=== PATIENT | male | born 1995 | race Caucasian/White ===

== ENCOUNTER 2019-10-16 21:55 | Emergency (ER) | payer SELFPAY ==
[2019-10-17 00:23] VITALS: BP 115/72
--- NOTE | 2019-10-17 01:05 | ER Document Report ---
ED General - General Chief Complaint: Sore Throat Stated Complaint: LOSS TASTE SMELL/CHILLS/HEADACHE Time Seen by Provider: 10/17/19 00:41 Primary Care Provider: HAO DEL VALLE MD [Primary Care Provider] - Follow up as needed Mode of Arrival: Ambulatory Information source: Patient TRAVEL OUTSIDE OF THE [place] IN LAST 30 DAYS: No - HPI Onset: Other - over the last several days Onset/Duration: Gradual Quality of pain: Achy Severity: Mild Pain Level: 1 Associated symptoms: Chills, Nonproductive cough, Productive cough, Fever - low grade, Sore throat, Other - transient loss of taste Exacerbated by: Denies Relieved by: Denies Similar symptoms previously: No Recently seen / treated by doctor: No Notes: 24 year old male with no significant PMH here in the ER to be tested for COVID19. The patient says over the last several days, he has had viral symptoms such as sore throat, mild cough (sometimes productive, sometimes not), low grade fevers (Tmax 99F) and chills. The patient is unsure if he has had any positive sick contacts since he encounters many people at his job at [employer] [employer]. Past Medical History - General Information source: Patient - Social History Smoking Status: Never Smoker Chew tobacco use (# tins/day): No Frequency of alcohol use: Occasional Drug Abuse: None Family History: Reviewed & Not Pertinent Review of Systems - Review of Systems Constitutional: No symptoms reported, Chills, Fever - low grade to 99F EENT: Throat pain Cardiovascular: No symptoms reported Respiratory: Cough. denies: Short of breath Gastrointestinal: No symptoms reported Genitourinary: No symptoms reported Male Genitourinary: No symptoms reported Musculoskeletal: No symptoms reported Skin: No symptoms reported Hematologic/Lymphatic: No symptoms reported Neurological/Psychological: No symptoms reported -: Yes All other systems reviewed and negative Physical Exam - Vital signs Vitals: Temp Pulse Resp BP Pulse Ox 98.3 F 84 20 104/69 100 10/16/19 22:27 10/16/19 22:27 10/16/19 22:27 10/16/19 22:27 10/16/19 22:27 - Notes Notes: GENERAL: Well-appearing, well-nourished and in no acute distress. HEAD: Atraumatic, normocephalic. EYES: Pupils equal round and reactive to light, extraocular movements intact, sclera anicteric, conjunctiva are normal. ENT: External ears normal, nares patent, oropharynx clear without exudates. Moist mucous membranes. NECK: Normal range of motion, supple without lymphadenopathy or JVD. LUNGS: Breath sounds clear to auscultation bilaterally and equal. No wheezes rales or rhonchi. HEART: Regular rate and rhythm without murmurs, rubs or gallops. ABDOMEN: Soft, nontender, normoactive bowel sounds. No guarding, no rebound. No masses appreciated. EXTREMITIES: Normal range of motion, no pitting or edema. No clubbing or cyanosis. NEUROLOGICAL: Cranial nerves II through XII grossly intact. Normal speech, normal gait. PSYCH: Normal mood, normal affect. SKIN: Warm, Dry, normal turgor, no rashes or lesions noted. Course - Re-evaluation Re-evalutation: 10/17/19 01:12 The patient is here for viral like symptoms. He looks very well, has normal vital signs, and no breathing issues. The patient and would just like to be tested for COVID. Patient therefore tested with a nonrapid COVID19 test and he was told he would be called with the results. No need for other labs or diagnostics needed today. - Vital Signs Vital signs: Temp Pulse Resp BP Pulse Ox 97.3 F 54 L 16 115/72 97 10/17/19 00:22 10/17/19 00:22 10/17/19 00:22 10/17/19 00:22 10/17/19 00:22 Discharge - Discharge Clinical Impression: Viral syndrome Condition: Stable Disposition: HOME, SELF-CARE Instructions: COVID-19 Guidance for Persons Under Investigation, Viral Syndrome ([facility]) Additional Instructions: Drink plenty of fluids in the days to come. Use Tylenol and Motrin for fevers or body aches. Follow up with your primary care doctor if symptoms persist. Self isolate for 14 days unless you get a negative COVID19 test result. Referrals: HAO DEL VALLE MD [Primary Care Provider] - Follow up as needed
== END 2019-10-17 01:24 | disposition home or self-care (01) ==
LOC: ER 21:55
DX: B34.9 Viral infection, unspecified (principal); R05 Cough; R50.9 Fever, unspecified; J02.9 Acute pharyngitis, unspecified; R43.8 Other disturbances of smell and taste; Z20.828 Contact with and (suspected) exposure to other viral communicable diseases
CPT/HCPCS: 99283; 87635; C9803